=== PATIENT | male | born 1990 | race African-American/Black ===

== ENCOUNTER 2019-02-12 09:41 | Emergency (ER) | payer OTHER ==
[~2019-02-12] VITALS: Ht 193 cm; Wt 68.6 kg
[2019-02-12 09:44] VITALS: BP 112/67
[2019-02-12] MEDS ORDERED: CEFTRIAXONE 250 MG ONE ×2 (10:02→10:03)
[2019-02-12] MEDS ORDERED: AZITHROMYCIN 250 MG TABLET ONE ×2 (10:02→10:03)
[2019-02-12] MEDS ORDERED: AZITHROMYCIN 500 MG TABLET PO ONE (10:30)
[2019-02-12] MEDS ORDERED: CEFTRIAXONE 250 MG IM ONE (10:30)
== END 2019-02-12 10:43 ==
LOC: ED 10:25
DX: A74.9 Chlamydial infection, unspecified (principal); A54.9 Gonococcal infection, unspecified
CPT/HCPCS: 96372; 99283; J0696

== ENCOUNTER 2019-05-28 13:57 | Emergency (ER) | payer MEDICAID ==
[~2019-05-28] VITALS: Ht 193 cm; Wt 67.0 kg
[2019-05-28 14:25] VITALS: BP 112/66
== END 2019-05-28 14:58 ==
LOC: ED 14:20
DX: R05 Cough (principal); J00 Acute nasopharyngitis [common cold]; M79.10 Myalgia, unspecified site; R09.81 Nasal congestion
CPT/HCPCS: 99283

== ENCOUNTER 2020-04-16 06:27 | Inpatient (IN) | payer MEDICAID ==
[~2020-04-16] VITALS: Ht 190.5 cm; Wt 64.5 kg
--- NOTE | 2020-04-16 06:33 | NUR ---
pt bib remsa to room from [facility]. in handcuffs and leg cuffs. enrrique at bedside to monitor pt.
--- NOTE | 2020-04-16 06:44 | NUR ---
MD evaluated pt, and piv being started to right forearm. 18g x1 attempt, and labs being drawn.
--- NOTE | 2020-04-16 06:50 | NUR ---
report and care to [facility] RN
--- NOTE | 2020-04-16 06:55 | NUR ---
REPORT FROM [facility].
[2020-04-16] MEDS ORDERED: DIPH,PERTUSS(ACELL),TET VAC/PF 0.5 ML IM-VACC ONE ×2 (06:59→07:00)
[2020-04-16] MEDS ORDERED: SODIUM CHLORIDE FLUSH 10ML SYR IVF ONE (07:00)
[2020-04-16] MEDS ORDERED: AMPICILLIN/SULBACTAM 3 GM in SODIUM CHLORIDE 0.9% 100 ML IV ONE (07:00)
[2020-04-16 07:26] LABS: BASOPHILS % (AUTO) 0 % (0-1); EOSINOPHILS % (AUTO) 1 % (1-7); LYMPHOCYTES % (AUTO) 20 % (22-44); MEAN CORPUSCULAR HEMOGLOBIN 26.7 pg (27.5-34.5); MEAN CORPUSCULAR HGB CONC 32.6 g/dL (33.2-36.2); MEAN PLATELET VOLUME 8.9 fL (7.4-10.4); MONOCYTES % (AUTO) 10 % (2-9); NEUTROPHILS % (AUTO) 69 % (42-75); PLATELET COUNT 244 x10^3/uL (130-400); RED BLOOD COUNT 5.33 x10^6/uL (4.38-5.82); RED CELL DISTRIBUTION WIDTH 13.5 % (9.4-14.8)
[2020-04-16 07:28] LABS: MD NO
--- NOTE | 2020-04-16 07:28 | NUR ---
BLOOD CULTURES DRAWN PRIOR TO ABX ADMIN,
[2020-04-16 07:41] LABS: ALANINE AMINOTRANSFERASE 19 U/L (12-78); ALBUMIN 3.6 g/dL (3.4-5.0); ANION GAP 7 mmol/L (5-15); CALCIUM 9.2 mg/dL (8.5-10.1); CHLORIDE 104 mmol/L (98-107); CREATININE 1.36 mg/dL (0.7-1.3)
[2020-04-16 07:43] LABS: ALKALINE PHOSPHATASE 87 U/L (45-117); BILIRUBIN,TOTAL 0.6 mg/dL (0.2-1.0); TOTAL PROTEIN 8.9 g/dL (6.4-8.2)
[2020-04-16] MEDS ORDERED: POLYETHYLENE GLYCOL 17 GM PACKET PO PRN (08:00)
[2020-04-16] MEDS ORDERED: DOCUSATE 100 MG CAPSULE PO PRN (08:00)
[2020-04-16] MEDS ORDERED: ENOXAPARIN 40 MG/0.4 ML SQ SCH (08:00)
[2020-04-16] MEDS ORDERED: morphine SULFATE 10 MG/ML, 1ML IVPush PRN (08:00)
[2020-04-16] MEDS ORDERED: ONDANSETRON 2MG/ML, 2ML IVPush PRN (08:00)
[2020-04-16] MEDS: AMPICILLIN/SULBACTAM 3 GM in SODIUM CHLORIDE 0.9% 100 ML IV SCH ×3 (08:30→22:30)
[2020-04-16] MEDS ORDERED: VANCOMYCIN PER PHARMACY MC PRN (08:30)
[2020-04-16] MEDS ORDERED: VANCOMYCIN PMX 1GM/200ML 200 ML IV ONE (08:30)
[2020-04-16] MEDS ORDERED: SODIUM CHLORIDE FLUSH 10ML SYR IVF PRN (08:30)
[2020-04-16] MEDS ORDERED: PHARMACOKINETIC CONSULTATION MC ONE (09:00)
[2020-04-16] MEDS ORDERED: PHARMACOKINETIC MONITORING MC PRN (09:00)
[2020-04-16] MEDS ORDERED: VANCOMYCIN 1,700 MG in SODIUM CHLORIDE 0.9% 250 ML IV ONE (09:00)
[2020-04-16] MEDS ORDERED: LOVENOX MC SCH (09:30)
--- NOTE | 2020-04-16 10:12 | NUR ---
REPORT TO OR
[2020-04-16] MEDS: SODIUM CHLORIDE 0.9% 1,000 ML IV SCH ×2 (10:39→20:15)
[2020-04-16] MEDS ORDERED: BUPIVACAINE/PF 0.25% ONE (10:48)
[2020-04-16] MEDS ORDERED: FENTANYL PF 100 MCG/2ML ONE ×2 (12:02→12:44)
[2020-04-16] MEDS ORDERED: DEXAMETHASONE 4 MG/ML, 1ML ONE (12:03)
[2020-04-16] MEDS ORDERED: FENTANYL PF 250 MCG/5ML ONE (12:20)
[2020-04-16] MEDS ORDERED: HYDROmorphone 2 MG/ML, 1ML IVPush PRN (12:30)
[2020-04-16] MEDS ORDERED: LABETALOL 5MG/ML, 20ML IV PRN (12:30)
[2020-04-16] MEDS ORDERED: OXYcodone 5 MG/5 ML ORAL.SOL UDC PO PRN (12:30)
[2020-04-16] MEDS ORDERED: ACETAMINOPHEN 325 MG TABLET PO PRN (12:30)
[2020-04-16] MEDS ORDERED: hydrALAzine 20 MG/ML, 1ML IV PRN (12:30)
[2020-04-16] MEDS ORDERED: MEPERIDINE/PF 25MG/0.5ML IVPush PRN (12:30)
[2020-04-16] MEDS ORDERED: PROMETHAZINE 25 MG/ML, 1ML IV PRN (12:30)
[2020-04-16] MEDS ORDERED: KETOROLAC 30 MG/1 ML IV PRN (12:30)
[2020-04-16] MEDS ORDERED: ALBUTEROL SULFATE 2.5 MG/3 ML NPPB PRN (12:30)
[2020-04-16] MEDS ORDERED: DIAZEPAM 5 MG/ML, 2ML IVPush PRN (12:30)
[2020-04-16] MEDS ORDERED: PROPOFOL 10 MG/ML, 20ML ONE (12:36)
[2020-04-16] MEDS ORDERED: ONDANSETRON 2MG/ML, 2ML ONE (12:36)
[2020-04-16] MEDS ORDERED: SUCCINYLCHOLINE 20 MG/ML, 10ML ONE (12:36)
[2020-04-16] MEDS ORDERED: KETOROLAC 30 MG/1 ML ONE (12:37)
[2020-04-16] MEDS ORDERED: MEPERIDINE/PF 25MG/ML,1ML ONE (12:44)
[2020-04-16] MEDS ORDERED: ACETAMINOPHEN 650 MG/20.3 ML UDC ONE (12:44)
[2020-04-16] MEDS ORDERED: OXYcodone 5 MG/5 ML ORAL.SOL UDC ONE (12:44)
[2020-04-16] MEDS: FENTANYL PF 100 MCG/2ML IV PRN ×2 (13:18→13:23)
[2020-04-16 20:03] VITALS: BP 115/78
[2020-04-16] MEDS: VANCOMYCIN 1,300 MG in SODIUM CHLORIDE 0.9% 250 ML IV SCH (23:10)
[2020-04-17 00:32] VITALS: BP 105/72
[2020-04-17] MEDS: AMPICILLIN/SULBACTAM 3 GM in SODIUM CHLORIDE 0.9% 100 ML IV SCH ×4 (03:50→21:19)
[2020-04-17] MEDS: SODIUM CHLORIDE 0.9% 1,000 ML IV SCH (03:51)
[2020-04-17 04:00] VITALS: BP 110/70
[2020-04-17 04:51] LABS: BASOPHILS % (AUTO) 1 % (0-1); EOSINOPHILS % (AUTO) 0 % (1-7); LYMPHOCYTES % (AUTO) 17 % (22-44); MEAN CORPUSCULAR HEMOGLOBIN 26.4 pg (27.5-34.5); MEAN CORPUSCULAR HGB CONC 32.2 g/dL (33.2-36.2); MEAN PLATELET VOLUME 8.8 fL (7.4-10.4); MONOCYTES % (AUTO) 8 % (2-9); NEUTROPHILS % (AUTO) 74 % (42-75); PLATELET COUNT 200 x10^3/uL (130-400); RED CELL DISTRIBUTION WIDTH 13.6 % (9.4-14.8)
[2020-04-17 04:58] LABS: ALANINE AMINOTRANSFERASE 17 U/L (12-78); ALBUMIN 2.7 g/dL (3.4-5.0); ANION GAP 5 mmol/L (5-15); CALCIUM 8.4 mg/dL (8.5-10.1); CHLORIDE 112 mmol/L (98-107); CREATININE 1.11 mg/dL (0.7-1.3)
[2020-04-17 05:00] LABS: ALKALINE PHOSPHATASE 65 U/L (45-117); BILIRUBIN,TOTAL 0.4 mg/dL (0.2-1.0); TOTAL PROTEIN 6.9 g/dL (6.4-8.2)
[2020-04-17 05:06] LABS: MD NO
[2020-04-17 07:05] VITALS: BP 118/75
[2020-04-17] MEDS: ENOXAPARIN 40 MG/0.4 ML SQ SCH (08:33)
[2020-04-17] MEDS ORDERED: MAGNESIUM HYDROXIDE 8%, 30ML UDC PO PRN (09:30)
[2020-04-17] MEDS: HYDROcodone/APAP 5/325 TABLET PO PRN ×2 (10:37→21:19)
[2020-04-17] MEDS: VANCOMYCIN 1,300 MG in SODIUM CHLORIDE 0.9% 250 ML IV SCH ×2 (10:37→23:12)
[2020-04-17] MEDS ORDERED: DEXAMETHASONE 4 MG/ML, 1ML ONE (12:03)
[2020-04-17 13:55] VITALS: BP 119/72
[2020-04-17 19:13] VITALS: BP 113/73
[2020-04-18] MEDS: HYDROcodone/APAP 5/325 TABLET PO PRN ×3 (01:12→21:26)
[2020-04-18 02:45] VITALS: BP 114/77
[2020-04-18] MEDS: AMPICILLIN/SULBACTAM 3 GM in SODIUM CHLORIDE 0.9% 100 ML IV SCH ×4 (03:46→21:26)
[2020-04-18 04:56] LABS: BASOPHILS % (AUTO) 1 % (0-1); EOSINOPHILS % (AUTO) 2 % (1-7); LYMPHOCYTES % (AUTO) 38 % (22-44); MEAN CORPUSCULAR HEMOGLOBIN 26.5 pg (27.5-34.5); MEAN CORPUSCULAR HGB CONC 32.3 g/dL (33.2-36.2); MEAN PLATELET VOLUME 8.6 fL (7.4-10.4); MONOCYTES % (AUTO) 8 % (2-9); NEUTROPHILS % (AUTO) 52 % (42-75); PLATELET COUNT 194 x10^3/uL (130-400); RED BLOOD COUNT 4.46 x10^6/uL (4.38-5.82); RED CELL DISTRIBUTION WIDTH 13.7 % (9.4-14.8)
[2020-04-18 05:00] LABS: MD NO
[2020-04-18 05:08] LABS: ANION GAP 6 mmol/L (5-15); CALCIUM 8.4 mg/dL (8.5-10.1); CHLORIDE 110 mmol/L (98-107); CREATININE 0.97 mg/dL (0.7-1.3)
[2020-04-18 07:50] VITALS: BP 124/85
[2020-04-18] MEDS: ENOXAPARIN 40 MG/0.4 ML SQ SCH (08:43)
[2020-04-18 13:55] VITALS: BP 114/66
[2020-04-18 20:00] VITALS: BP 118/74
[2020-04-19 00:56] VITALS: BP 108/60
[2020-04-19] MEDS: AMPICILLIN/SULBACTAM 3 GM in SODIUM CHLORIDE 0.9% 100 ML IV SCH ×4 (04:03→21:40)
[2020-04-19 05:35] LABS: BASOPHILS % (AUTO) 1 % (0-1); EOSINOPHILS % (AUTO) 4 % (1-7); LYMPHOCYTES % (AUTO) 42 % (22-44); MEAN CORPUSCULAR HEMOGLOBIN 26.7 pg (27.5-34.5); MEAN CORPUSCULAR HGB CONC 32.9 g/dL (33.2-36.2); MEAN PLATELET VOLUME 8.8 fL (7.4-10.4); MONOCYTES % (AUTO) 12 % (2-9); NEUTROPHILS % (AUTO) 42 % (42-75); PLATELET COUNT 242 x10^3/uL (130-400); RED BLOOD COUNT 4.77 x10^6/uL (4.38-5.82); RED CELL DISTRIBUTION WIDTH 13.9 % (9.4-14.8)
[2020-04-19 05:36] LABS: HCT (SEDRATE) 39.1 % (39.2-51.8)
[2020-04-19 05:40] LABS: ANION GAP 6 mmol/L (5-15); CHLORIDE 108 mmol/L (98-107)
[2020-04-19 05:42] LABS: MD NO
[2020-04-19 07:04] VITALS: BP 138/91
[2020-04-19] MEDS: ENOXAPARIN 40 MG/0.4 ML SQ SCH (09:21)
[2020-04-19 12:59] VITALS: BP 124/78
[2020-04-19] MEDS: HYDROcodone/APAP 5/325 TABLET PO PRN ×2 (17:46→21:44)
[2020-04-19 18:45] VITALS: BP 118/55
[2020-04-20 01:41] VITALS: BP 103/67
[2020-04-20] MEDS: AMPICILLIN/SULBACTAM 3 GM in SODIUM CHLORIDE 0.9% 100 ML IV SCH ×4 (03:49→21:40)
[2020-04-20 04:15] LABS: BASOPHILS % (AUTO) 1 % (0-1); EOSINOPHILS % (AUTO) 4 % (1-7); LYMPHOCYTES % (AUTO) 43 % (22-44); MEAN CORPUSCULAR HEMOGLOBIN 26.5 pg (27.5-34.5); MEAN CORPUSCULAR HGB CONC 32.4 g/dL (33.2-36.2); MEAN PLATELET VOLUME 8.5 fL (7.4-10.4); MONOCYTES % (AUTO) 10 % (2-9); NEUTROPHILS % (AUTO) 42 % (42-75); PLATELET COUNT 273 x10^3/uL (130-400); RED BLOOD COUNT 5.07 x10^6/uL (4.38-5.82); RED CELL DISTRIBUTION WIDTH 13.5 % (9.4-14.8)
[2020-04-20 04:20] LABS: MD NO
[2020-04-20 04:24] LABS: ANION GAP 3 mmol/L (5-15); CALCIUM 9.1 mg/dL (8.5-10.1); CHLORIDE 107 mmol/L (98-107); CREATININE 1.22 mg/dL (0.7-1.3)
[2020-04-20 06:32] VITALS: BP 115/73
[2020-04-20] MEDS: ENOXAPARIN 40 MG/0.4 ML SQ SCH (08:19)
[2020-04-20 14:35] VITALS: BP 103/68
[2020-04-20 18:37] VITALS: BP 120/72
[2020-04-20] MEDS: HYDROcodone/APAP 5/325 TABLET PO PRN (19:44)
[2020-04-20] MEDS: ACETAMINOPHEN 325 MG TABLET PO PRN (23:48)
[2020-04-21 01:19] VITALS: BP 103/67
[2020-04-21] MEDS: AMPICILLIN/SULBACTAM 3 GM in SODIUM CHLORIDE 0.9% 100 ML IV SCH ×4 (03:56→21:20)
[2020-04-21 06:30] VITALS: BP 115/81
[2020-04-21] MEDS: ENOXAPARIN 40 MG/0.4 ML SQ SCH (08:06)
[2020-04-21 14:00] VITALS: BP 103/68
[2020-04-21] MEDS: HYDROcodone/APAP 5/325 TABLET PO PRN (14:42)
[2020-04-21 19:47] VITALS: BP 145/96
[2020-04-21] MEDS: ACETAMINOPHEN 325 MG TABLET PO PRN (20:28)
[2020-04-22] MEDS: AMPICILLIN/SULBACTAM 3 GM in SODIUM CHLORIDE 0.9% 100 ML IV SCH ×4 (03:35→21:37)
[2020-04-22 03:38] VITALS: BP 94/58
[2020-04-22 07:19] VITALS: BP 132/98
[2020-04-22] MEDS: ENOXAPARIN 40 MG/0.4 ML SQ SCH (08:03)
[2020-04-22 13:35] VITALS: BP 116/74
[2020-04-22 19:04] VITALS: BP 115/80
[2020-04-22] MEDS: HYDROcodone/APAP 5/325 TABLET PO PRN (20:52)
[2020-04-23 00:36] VITALS: BP 105/71
[2020-04-23] MEDS: AMPICILLIN/SULBACTAM 3 GM in SODIUM CHLORIDE 0.9% 100 ML IV SCH ×2 (03:31→09:18)
[2020-04-23 03:56] LABS: MEAN CORPUSCULAR HEMOGLOBIN 26.9 pg (27.5-34.5); MEAN CORPUSCULAR HGB CONC 32.7 g/dL (33.2-36.2); MEAN PLATELET VOLUME 8.6 fL (7.4-10.4); PLATELET COUNT 300 x10^3/uL (130-400); RED BLOOD COUNT 5.31 x10^6/uL (4.38-5.82); RED CELL DISTRIBUTION WIDTH 13.5 % (9.4-14.8)
[2020-04-23 04:04] LABS: ANION GAP 5 mmol/L (5-15); C-REACTIVE PROTEIN, QUANT 0.86 mg/dL (0.02-0.49); CHLORIDE 108 mmol/L (98-107); CREATININE 1.28 mg/dL (0.7-1.3)
[2020-04-23 04:26] LABS: MD YES
[2020-04-23 04:29] LABS: EOS#(MANUAL) 0.16 x10^3/uL (0.0-0.4); EOS% (MANUAL) 2 % (1-7); LYMPH#(MANUAL) 4.58 x10^3/uL (1-3.4); LYMPHS% (MANUAL) 58 % (22-44); MONOS#(MANUAL) 0.63 x10^3/uL (0.3-2.7); MONOS% (MANUAL) 8 % (2-9); REACTIVE LYMPHS # (MANUAL) 0.08 x10^3/uL (0-0); REACTIVE LYMPHS % (MANUAL) 1 % (0-0); SEG#(MANUAL) 2.45 x10^3/uL (1.8-6.8); SEGS% (MANUAL) 31 % (42-75)
[2020-04-23 04:30] LABS: <PLATELET ESTIMATE> ADEQUATE; <PLT MORPHOLOGY> NORMAL PLT MORPH; ANISOCYTOSIS 1+; MICROCYTOSIS 1+
[2020-04-23 07:38] VITALS: BP 109/64
[2020-04-23] MEDS: ENOXAPARIN 40 MG/0.4 ML SQ SCH (09:18)
[2020-04-23 12:36] VITALS: BP 132/91
[2020-04-23] MEDS ORDERED: ERTAPENEM 1 GM in SODIUM CHLORIDE 0.9% 50 ML IV SCH (14:00)
[2020-04-23] MEDS: HYDROcodone/APAP 5/325 TABLET PO PRN (14:08)
[2020-04-23 18:45] VITALS: BP 98/61
[2020-04-24 01:06] VITALS: BP 99/64
[2020-04-24] MEDS: HYDROcodone/APAP 5/325 TABLET PO PRN ×2 (05:31→13:19)
[2020-04-24 05:50] LABS: HCT (SEDRATE) 36.1 % (39.2-51.8)
[2020-04-24 05:52] LABS: MEAN CORPUSCULAR HEMOGLOBIN 26.6 pg (27.5-34.5); MEAN CORPUSCULAR HGB CONC 32.4 g/dL (33.2-36.2); MEAN PLATELET VOLUME 8.8 fL (7.4-10.4); PLATELET COUNT 257 x10^3/uL (130-400); RED BLOOD COUNT 4.54 x10^6/uL (4.38-5.82); RED CELL DISTRIBUTION WIDTH 13.6 % (9.4-14.8)
[2020-04-24 06:01] LABS: ALBUMIN 2.3 g/dL (3.4-5.0); ANION GAP 7 mmol/L (5-15); CALCIUM 6.9 mg/dL (8.5-10.1); CHLORIDE 118 mmol/L (98-107)
[2020-04-24 06:04] LABS: ALANINE AMINOTRANSFERASE 41 U/L (12-78); ALKALINE PHOSPHATASE 46 U/L (45-117); BILIRUBIN,TOTAL 0.2 mg/dL (0.2-1.0); C-REACTIVE PROTEIN, QUANT 0.43 mg/dL (0.02-0.49); CREATININE 0.86 mg/dL (0.7-1.3); TOTAL PROTEIN 5.5 g/dL (6.4-8.2)
[2020-04-24 06:28] LABS: MD YES
[2020-04-24 06:31] LABS: EOS#(MANUAL) 0.17 x10^3/uL (0.0-0.4); EOS% (MANUAL) 3 % (1-7); LYMPH#(MANUAL) 3.47 x10^3/uL (1-3.4); LYMPHS% (MANUAL) 63 % (22-44); MONOS#(MANUAL) 0.55 x10^3/uL (0.3-2.7); MONOS% (MANUAL) 10 % (2-9); SEG#(MANUAL) 1.32 x10^3/uL (1.8-6.8); SEGS% (MANUAL) 24 % (42-75)
[2020-04-24 06:32] LABS: <PLATELET ESTIMATE> ADEQUATE; <PLT MORPHOLOGY> NORMAL PLT MORPH; <RBC MORPHOLOGY> NORMAL
[2020-04-24 07:00] VITALS: BP 122/83
[2020-04-24 07:07] LABS: ALBUMIN 3.4 g/dL (3.4-5.0); ANION GAP 6 mmol/L (5-15); CALCIUM 8.8 mg/dL (8.5-10.1); CHLORIDE 108 mmol/L (98-107)
[2020-04-24 07:11] LABS: ALANINE AMINOTRANSFERASE 60 U/L (12-78); ALKALINE PHOSPHATASE 72 U/L (45-117); BILIRUBIN,TOTAL 0.2 mg/dL (0.2-1.0); TOTAL PROTEIN 8.5 g/dL (6.4-8.2)
[2020-04-24 08:04] LABS: HCT (SEDRATE) 41.8 % (39.2-51.8)
[2020-04-24 08:09] LABS: MEAN CORPUSCULAR HEMOGLOBIN 26.6 pg (27.5-34.5); MEAN CORPUSCULAR HGB CONC 32.2 g/dL (33.2-36.2); PLATELET COUNT 284 x10^3/uL (130-400); RED BLOOD COUNT 5.12 x10^6/uL (4.38-5.82); RED CELL DISTRIBUTION WIDTH 13.7 % (9.4-14.8)
[2020-04-24 08:31] LABS: MD YES
[2020-04-24 08:36] LABS: <PLATELET ESTIMATE> ADEQUATE; <PLT MORPHOLOGY> NORMAL PLT MORPH; <RBC MORPHOLOGY> NORMAL; EOS#(MANUAL) 0.18 x10^3/uL (0.0-0.4); EOS% (MANUAL) 3 % (1-7); LYMPH#(MANUAL) 4.09 x10^3/uL (1-3.4); LYMPHS% (MANUAL) 67 % (22-44); MONOS#(MANUAL) 0.43 x10^3/uL (0.3-2.7); MONOS% (MANUAL) 7 % (2-9); SEGS% (MANUAL) 23 % (42-75)
[2020-04-24] MEDS: ENOXAPARIN 40 MG/0.4 ML SQ SCH (09:28)
[2020-04-24] MEDS ORDERED: ERTAPENEM 1 GM in SODIUM CHLORIDE 0.9% 50 ML IV SCH (11:00)
[2020-04-24 13:04] VITALS: BP 120/75
[2020-04-24] MEDS ORDERED: ERTA1VIA4 IV (13:30)
== END 2020-04-24 14:10 | disposition home or self-care (01) | DRG 513 ==
LOC: ED 06:51 → SUATTDRO 08:00 → EDIP 08:03 → 4NE 10:22 → DCLOUNGE 04-24 14:00
PROVIDERS: ADMIT Internal Medicine; ATTEND Family Medicine
PROC: 0RBV0ZZ Excision of Left Metacarpophalangeal Joint, Open Approach (ICD-10-PCS; 2020-04-16)
PROC: 0PBQ0ZZ Excision of Left Metacarpal, Open Approach (ICD-10-PCS; 2020-04-16)
PROC: 02HV33Z Insertion of Infusion Device into Superior Vena Cava, Percutaneous Approach (ICD-10-PCS; principal; 2020-04-18)
PROC: B548ZZA Ultrasonography of Superior Vena Cava, Guidance (ICD-10-PCS; 2020-04-18)
DX: M00.9 Pyogenic arthritis, unspecified (principal); N17.0 Acute kidney failure with tubular necrosis; L03.114 Cellulitis of left upper limb; L02.512 Cutaneous abscess of left hand; M00.842 Arthritis due to other bacteria, left hand; F12.90 Cannabis use, unspecified, uncomplicated; F17.200 Nicotine dependence, unspecified, uncomplicated; S61.412A Laceration without foreign body of left hand, initial encounter; D63.8 Anemia in other chronic diseases classified elsewhere; D72.829 Elevated white blood cell count, unspecified; Z20.822 Contact with and (suspected) exposure to COVID-19; S61.452A Open bite of left hand, initial encounter; Y93.89 Activity, other specified; Z83.3 Family history of diabetes mellitus; Y92.89 Other specified places as the place of occurrence of the external cause; Y99.8 Other external cause status
CPT/HCPCS: 36415; 36573; 80048; 80053; 80202; 83605; 85025; 85651; 86140; 87040; 87070; 87075; 87205; 87635; 90471; 90715; 96365; 99285; G0378; J0295; J1100; J1335; J1650; J1885; J2405; J2704; J3010; J3370; C1751; J0330; J7030; J7050

== ENCOUNTER 2020-08-08 00:38 | Emergency (ER) | payer MEDICAID ==
[~2020-08-08] VITALS: Ht 193 cm; Wt 70.0 kg
[~2020-08-08 00:38] MED LIST: ERTA1VIA4 IV
[2020-08-08] MEDS ORDERED: MORPHINE SULFATE 4 MG/ML, 1ML IVPush ONE (01:30)
[2020-08-08] MEDS ORDERED: ONDANSETRON 2MG/ML, 2ML IVPush ONE (01:30)
[2020-08-08 01:41] LABS: MICROSCOPIC NOT IND
[2020-08-08 01:42] LABS: MEAN CORPUSCULAR HEMOGLOBIN 26.9 pg (27.5-34.5); MEAN CORPUSCULAR HGB CONC 32.4 g/dL (33.2-36.2); MEAN PLATELET VOLUME 9.2 fL (7.4-10.4); PLATELET COUNT 181 x10^3/uL (130-400); RED BLOOD COUNT 5.06 x10^6/uL (4.38-5.82); RED CELL DISTRIBUTION WIDTH 13.9 % (9.4-14.8)
[2020-08-08] MEDS ORDERED: MORPHINE SULFATE 4 MG/ML, 1ML ONE (01:47)
[2020-08-08 01:50] LABS: ALANINE AMINOTRANSFERASE 21 U/L (12-78); ALBUMIN 3.6 g/dL (3.4-5.0); CALCIUM 8.8 mg/dL (8.5-10.1); CREATININE 1.31 mg/dL (0.7-1.3)
[2020-08-08] MEDS ORDERED: ONDANSETRON 2MG/ML, 2ML ONE (01:51)
[2020-08-08 01:53] LABS: ALKALINE PHOSPHATASE 72 U/L (45-117); BILIRUBIN,TOTAL 0.3 mg/dL (0.2-1.0); TOTAL PROTEIN 7.9 g/dL (6.4-8.2)
[2020-08-08 01:58] LABS: CHLORIDE 110 mmol/L (98-107)
[2020-08-08 01:59] LABS: ANION GAP 2 mmol/L (5-15)
--- NOTE | 2020-08-08 02:00 | NUR ---
PT HERE FOR ABD PAIN WITH N/V X 2 DAYS. VSS. PT MEDICATED. PT REFUSED MORPHINE. CALL LIGHT IN REACH
[2020-08-08 02:04] LABS: MD YES
[2020-08-08 02:05] LABS: ANISOCYTOSIS 1+; EOS#(MANUAL) 0.07 x10^3/uL (0.0-0.4); EOS% (MANUAL) 1 % (1-7); LYMPH#(MANUAL) 4.21 x10^3/uL (1-3.4); LYMPHS% (MANUAL) 61 % (22-44); MICROCYTOSIS 1+; MONOS#(MANUAL) 0.62 x10^3/uL (0.3-2.7); MONOS% (MANUAL) 9 % (2-9); OVALOCYTES 1+; SEGS% (MANUAL) 29 % (42-75)
[2020-08-08 02:06] LABS: <PLATELET ESTIMATE> ADEQUATE; <PLT MORPHOLOGY> NORMAL PLT MORPH
[2020-08-08] MEDS ORDERED: CEFTRIAXONE 1,000 MG IM ONE (02:30)
[2020-08-08] MEDS ORDERED: DOXYCYCLINE 100MG TABLET PO ONE (02:30)
[2020-08-08] MEDS ORDERED: MAALOX/HYOSCYAMINE/LIDOCAINE 45 ML BTL PO ONE (02:30)
[2020-08-08] MEDS ORDERED: CEFTRIAXONE 1,000 MG in DEXTROSE 5% 50 ML IV ONE (02:30)
[2020-08-08] MEDS ORDERED: MAALOX/HYOSCYAMINE/LIDOCAINE 45 ML BTL ONE (02:34)
[2020-08-08] MEDS ORDERED: DOXYCYCLINE 100MG TABLET ONE (02:34)
[2020-08-08 02:46] VITALS: BP 131/71
--- NOTE | 2020-08-08 03:23 | NUR ---
Patient given discharge instructions and they have confirmed that they understand the instructions. Patient ambulatory with steady gait. NAD, all questions answered appropriately, denies additional needs at this time. No personal belongings left in room after discharge.
== END 2020-08-08 03:26 | disposition home or self-care (01) ==
LOC: ED 01:01
DX: R10.84 Generalized abdominal pain (principal); R19.7 Diarrhea, unspecified; R11.0 Nausea; Z20.822 Contact with and (suspected) exposure to COVID-19; Z20.2 Contact with and (suspected) exposure to infections with a predominantly sexual mode of transmission; Z72.9 Problem related to lifestyle, unspecified
CPT/HCPCS: 36415; 80053; 81003; 83690; 85025; 87491; 87591; 96365; 96375; 99284; J0696; J2405; U0003; U0005

== ENCOUNTER 2020-11-19 14:42 | Emergency (ER) | payer MEDICAID, OTHER ==
[~2020-11-19] VITALS: Ht 190.5 cm; Wt 69.8 kg
[2020-11-19 15:03] VITALS: BP 123/72
--- NOTE | 2020-11-19 16:08 | NUR ---
PT DISCHARGED BY SOTERO DELGADO
== END 2020-11-19 16:10 | disposition home or self-care (01) ==
LOC: ED 15:00
DX: A60.01 Herpesviral infection of penis (principal)
CPT/HCPCS: 99283